=== PATIENT | male | born 1995 | race Caucasian/White ===

== ENCOUNTER 2023-10-06 07:31 | Emergency (ER) | payer MEDICAID, OTHER ==
[~2023-10-06] VITALS: Ht 172.7 cm; Wt 82.0 kg
[2023-10-06 07:34] VITALS: O2SAT 99
[2023-10-06] MEDS: ACETAMINOPHEN 500MG TABLET PO ONE (08:15)
[2023-10-06] MEDS: BACITRACIN ZINC OINT UDPKT TOP ONE (09:30)
[2023-10-06 10:02] VITALS: BP 120/77; PULSE 90; RESP 16; TEMP 98.4
== END 2023-10-06 10:05 | disposition home or self-care (01) ==
LOC: ER 08:40
DX: S00.81XA Abrasion of other part of head, initial encounter (principal); M25.562 Pain in left knee; V49.9XXA Car occupant (driver) (passenger) injured in unspecified traffic accident, initial encounter; Y93.89 Activity, other specified; Y92.89 Other specified places as the place of occurrence of the external cause; Y99.8 Other external cause status
CPT/HCPCS: 70486; 73562; 99284